=== PATIENT | female | born 1995 | race Caucasian/White ===

== ENCOUNTER → 2017-01-05 | Outpatient (CLI) | payer OTHER ==
--- NOTE | 2017-01-05 16:03 | RAD ---
Exam performed: OB ultrasound first trimester. History: First trimester abdominal pain. Date of service: 01/05/17. Comparison: None available Technique: Transabdominal and transvaginal. Findings: The uterus measures 9.4 x 5.8 x 5.2 cm. Endometrial stripe measures 27.3 mm. There is no intrauterine gestational sac. Right ovary measures 3.5 x 2.3 x 2.7 cm the left ovary measures 6.8 x 5.2 x 5.9 cm. There is a 5.4 x 4.8 x 5.5 cm cyst in the left ovary. Symmetric vascularity in both ovaries. Small amount of free fluid in the posterior cul-de-sac. Impression: 1. Large left ovarian cyst probably physiological. 2. No intra or extrauterine noted. Correlate with quantitative beta-hCG level to evaluate possible early . If test is positive, short-term interval follow-up OB ultrasound in approximately 2 weeks may be of additional benefit
== END | disposition home or self-care (01) ==
LOC: US 14:08
PROVIDERS: ATTEND Family Medicine
DX: O26.891 Other specified pregnancy related conditions, first trimester (principal); R10.84 Generalized abdominal pain; Z3A.01 Less than 8 weeks gestation of pregnancy
CPT/HCPCS: 76801

== ENCOUNTER 2017-04-06 11:05 | Emergency (ER) | payer MEDICAID, OTHER ==
[~2017-04-06] VITALS: Ht 152.4 cm; Wt 104.3 kg
--- NOTE | 2017-04-06 11:33 | PHYS DOC ---
Past Medical History Past Medical History: No Pertinent History Past Surgical History: Alcohol Use: None Drug Use: None Adult General Chief Complaint Chief Complaint: ABDOMINAL PAIN IN HPI HPI 21-year-old 16 week female by last menstrual period presenting to the emergency department today with abdominal pain and back pain. The pain is moderate intermittent nonradiating and not associated with any vaginal bleeding today. She denies fevers chills cough. Her OB doctor is Dr. Greene. Review of systems is negative for cough shortness of breath fevers chills. All other review of systems is negative unless otherwise noted in history of present illness. ED course: 21-year-old female presenting to the emergency department today with Abdominal pain in . Triage vital signs afebrile with normal heart rate. Labs obtained including ultrasound. Ultrasound reassuring. Labs obtained which showed the patient is Rh-. She has had mild vaginal bleeding but she reports it was a few weeks ago swelling go ahead and give her the moment RhoGAM here. Otherwise unremarkable. The patient was then discharged home in stable condition to follow up with her OB over the next 2-3 days. They were to return if their symptoms worsened or if they were concerned for any reason. Face-to- face discharge instructions and return precautions were given. Patient's questions were answered to their satisfaction. Patient is comfortable plan. Review of Systems Review of Systems SEE ABOVE. Current Medications Current Medications Current Medications Medications (Trade) Dose Ordered Sig/Eveline Start Time Stop Time Status Last Admin Dose Admin Acetaminophen (Tylenol) 650 mg 1X ONCE 04/06/17 11:45 04/06/17 11:46 DC 04/06/17 11:45 650 MG Allergies Allergies Allergies Coded Allergies Type Severity Reaction Last Updated Verified No Known Drug Allergies 08/30/13 No Physical Exam Physical Exam SEE ABOVE Constitutional: Well developed, well nourished, no acute distress, non-toxic appearance. [] HENT: Normocephalic, atraumatic, bilateral external ears normal, oropharynx moist, no oral exudates, nose normal. [] Eyes: PERRLA, EOMI, conjunctiva normal, no discharge. Neck: Normal range of motion, no tenderness, supple, no stridor. [] Cardiovascular:Heart rate regular rhythm, no murmur [] Lungs & Thorax: Bilateral breath sounds clear to auscultation Abdomen: Soft nontender gravid abdomen fundus 5cm below the umbilicus without rebound tenderness or guarding present. Negative McBurneys point. Negative Onofre sign. No ecchymosis present. Skin: Warm, dry, no erythema, no rash. [] Back: No tenderness, no CVA tenderness. [] Extremities: No tenderness, no cyanosis, no clubbing, ROM intact, no edema. Neurologic: Alert and oriented X 3, normal motor function, normal sensory function, no focal deficits noted. [] Psychologic: Affect normal, judgement normal, mood normal. Current Patient Data Vital Signs Vital Signs Date Time Temp Pulse Resp B/P (MAP) Pulse Ox O2 Delivery O2 Flow Rate FiO2 04/06/17 11:21 98.7 82 18 121/69 (86) 98 Room Air 98.7 Lab Values Laboratory Tests Test 04/06/17 10:25 04/06/17 11:13 04/06/17 12:00 POC Urine HCG, Qualitative Hcg positive (Negative) Urine Collection Type Void Urine Color Yellow Urine Clarity Clear Urine pH 7.0 Urine Specific [place] 1.025 Urine Protein Negative mg/dL (NEG-TRACE) Urine Glucose (UA) Negative mg/dL (NEG) Urine Ketones (Stick) Negative mg/dL (NEG) Urine Blood Negative (NEG) Urine Nitrite Negative (NEG) Urine Bilirubin Negative (NEG) Urine Urobilinogen Dipstick 1.0 mg/dL (0.2 mg/dL) Urine Leukocyte Esterase Negative (NEG) Urine RBC 0 /HPF (0-2) Urine WBC 0 /HPF (0-4) Urine Bacteria 0 /HPF (0-FEW) Urine Mucus Marked /LPF White Blood Count 10.1 x10^3/uL (4.0-11.0) Red Blood Count 3.79 x10^6/uL (3.50-5.40) Hemoglobin 11.7 g/dL (12.0-15.5) L Hematocrit 34.3 % (36.0-47.0) L Mean Corpuscular Volume 91 fL (79-100) Mean Corpuscular Hemoglobin 31 pg (25-35) Mean Corpuscular Hemoglobin Concent 34 g/dL (31-37) Red Cell Distribution Width 14.5 % (11.5-14.5) Platelet Count 117 x10^3/uL (140-400) L Neutrophils (%) (Auto) 78 % (31-73) H Lymphocytes (%) (Auto) 16 % (24-48) L Monocytes (%) (Auto) 4 % (0-9) Eosinophils (%) (Auto) 1 % (0-3) Basophils (%) (Auto) 0 % (0-3) Neutrophils # (Auto) 7.9 x10^3uL (1.8-7.7) H Lymphocytes # (Auto) 1.6 x10^3/uL (1.0-4.8) Monocytes # (Auto) 0.4 x10^3/uL (0.0-1.1) Eosinophils # (Auto) 0.1 x10^3/uL (0.0-0.7) Basophils # (Auto) 0.0 x10^3/uL (0.0-0.2) Platelet Estimate Pending Sodium Level 138 mmol/L (136-145) Potassium Level 3.5 mmol/L (3.5-5.1) Chloride Level 104 mmol/L (98-107) Carbon Dioxide Level 23 mmol/L (21-32) Anion Gap 11 (6-14) Blood Urea Nitrogen 6 mg/dL (7-20) L Creatinine 0.6 mg/dL (0.6-1.0) Estimated GFR (Cockcroft-Gault) 128.8 Glucose Level 123 mg/dL (70-99) H Calcium Level 8.9 mg/dL (8.5-10.1) Total Bilirubin 0.2 mg/dL (0.2-1.0) Direct Bilirubin 0.1 mg/dL (0.0-0.2) Aspartate Amino Transferase (AST) 15 U/L (15-37) Alanine Aminotransferase (ALT) 22 U/L (14-59) Alkaline Phosphatase 63 U/L (46-116) Total Protein 6.4 g/dL (6.4-8.2) Albumin 2.7 g/dL (3.4-5.0) L Lipase 95 U/L (73-393) Laboratory Tests 04/06/17 12:00 Laboratory Tests 04/06/17 12:00 EKG EKG [] Radiology/Procedures Radiology/Procedures [] Course & Med Decision Making Course & Med Decision Making Pertinent Labs and Imaging studies reviewed. (See chart for details) [] Dragon Disclaimer Dragon Disclaimer This electronic medical record was generated, in whole or in part, using a voice recognition dictation system. Departure Departure Impression: Primary Impression: Abdominal pain in Disposition: 01 HOME, SELF-CARE Condition: STABLE Referrals: VAISHNAVI TELLEZ MD (PCP) Patient Instructions: Abdominal Pain During Additional Instructions: Thank you for allowing us to participate in your care today. Followup with your OB in one day or 2 days.. Call your Primary Doctor tomorrow and inform them of your visit today. If you do not have a primary care provider you can ask for a list of our primary care providers. Return to the emergency department you have any new or concerning findings. This should be evaluated by the primary care physician and any necessary consulting services for continued management within a few days after discharge. Return to emergency room if you have any new or concerning symptoms including but not limited to fever, chills, nausea, vomiting, intractable pain, any new rashes, chest pain, shortness of air, uncontrolled bleeding, difficulty breathing, and/or vision loss. JASS CHERRY MD Apr 06, 2017 11:33
[2017-04-06 11:43] LABS: BILIRUBIN,URINE NEGATIVE (NEG); GLUCOSE,URINE NEGATIVE (NEG); NITRITE,URINE NEGATIVE (NEG); PROTEIN,URINE NEGATIVE (NEG-TRACE)
[2017-04-06] MEDS ORDERED: ACETAMINOPHEN 325 MG TABLET. PO ONE (11:45)
[2017-04-06 11:54] LABS: BACTERIA,URINE 0 /HPF (0-FEW); RBC,URINE 0 /HPF (0-2); WBC,URINE 0 /HPF (0-4)
[2017-04-06 12:07] LABS: BASO % 0 % (0-3); EOS % 1 % (0-3); HEMATOCRIT 34.3 % (36.0-47.0); HEMOGLOBIN 11.7 g/dL (12.0-15.5); LYMPH # 1.6 x10^3/uL (1.0-4.8); LYMPH % 16 % (24-48); MEAN CORPUSCULAR HEMOGLOBIN 31 pg (25-35); MEAN CORPUSCULAR HGB CONC 34 g/dL (31-37); MEAN CORPUSCULAR VOLUME 91 fL (79-100); MONO % 4 % (0-9); NEUT % 78 % (31-73); PLATELET COUNT 117 x10^3/uL (140-400); RED BLOOD COUNT 3.79 x10^6/uL (3.50-5.40); RED CELL DISTRIBUTION WIDTH 14.5 % (11.5-14.5); WHITE BLOOD COUNT 10.1 x10^3/uL (4.0-11.0)
[2017-04-06 12:26] LABS: CALCIUM 8.9 mg/dL (8.5-10.1); CREATININE 0.6 mg/dL (0.6-1.0); GFR 128.8; POTASSIUM 3.5 mmol/L (3.5-5.1)
[2017-04-06 12:31] LABS: ALBUMIN 2.7 g/dL (3.4-5.0); DIRECT BILIRUBIN 0.1 mg/dL (0.0-0.2); TOTAL BILIRUBIN 0.2 mg/dL (0.2-1.0); TOTAL PROTEIN 6.4 g/dL (6.4-8.2)
--- NOTE | 2017-04-06 13:22 | RAD ---
Indication pelvic pain. Obstetrical ultrasound examination was performed. Note is made of a prior examination 01/05/2017. The maternal cervical length is unremarkable at 4 cm. There is a single, viable, IUP. Biparietal diameter of 3.5 cm, head circumference of 13 cm, abdominal circumference of 11 cm and femoral length of 2.7 cm are compatible with a gestational age of approximately 17 weeks 1 day. By sonographic analysis the expected date of confinement is September 13, 2017. A full survey was not performed. heart rate of 145 was documented. The developing placenta is predominantly anterior. The amount of amniotic fluid appears normal. IMPRESSION: Single, viable, IUP of approximately 17 weeks gestation
[2017-04-06 14:26] LABS: PLT ESTIMATE ADEQUATE (ADEQUATE)
[2017-04-06 14:28] VITALS: BP 117/61
== END 2017-04-06 15:19 | disposition home or self-care (01) ==
LOC: ER 11:05
DX: O26.892 Other specified pregnancy related conditions, second trimester (principal); R10.9 Unspecified abdominal pain; M54.9 Dorsalgia, unspecified; O20.9 Hemorrhage in early pregnancy, unspecified; Z3A.16 16 weeks gestation of pregnancy
CPT/HCPCS: 36415; 76805; 80048; 80076; 81001; 81025; 83690; 85007; 85027; 86850; 86900; 86901; 99285; J2791

== ENCOUNTER → 2020-10-19 | Outpatient (CLI) | payer MEDICAID, OTHER ==
[2018-08-15 12:15] VITALS: BP 112/58
--- NOTE | 2020-10-19 16:19 | KCIC ---
EXAMINATION: MRI RIGHT LOWER EXTREMITY JOINT W INDICATIONS: Right knee pain medially after fall 10/04/2020. TECHNIQUE: Multiplanar multisequence MRI of the right knee was obtained without contrast. COMPARISON: Right knee radiograph 10/04/2020 FINDINGS: MENISCI: The medial and lateral menisci are intact. LIGAMENTS: High-grade tear of the medial patellofemoral ligament, greatest in the proximal and midpo rtion with probable complete disruption of fibers seen in the midportion (image 14 series 3). The anterior and posterior cruciate ligaments are intact. There is mild thickening of the proximal damon perficial medial collateral ligament with surrounding fluid. The medial meniscofemoral ligament is no t well visualized, and may be injured. The fibular collateral ligament, biceps femoris tendon, and po pliteus tendon are intact. There is edema deep to the iliotibial band. EXTENSOR MECHANISM: Medial patellofemoral ligament/medial retinaculum tear as above. Lateral retinacu lum is intact. The quadriceps and patellar tendons are intact. There is edema in the fat pad. BONES AND CARTILAGE: There is a mildly impacted osteochondral fracture of the medial patellar facet. No displaced fragment identified. Large contusion in the lateral femoral condyle. There is also cont usion in the posterior medial tibial plateau. Medial and lateral compartment cartilage is intact. OTHER: Small joint effusion. Extensive edema along the medial aspect of the knee. The remaining tend ons are intact. Cysts are intact. IMPRESSION: 1. Sequela of recent transient lateral patellar dislocation with high-grade, likely complete tear of the medial patellofemoral ligament, osteochondral fracture of the medial patellar facet, and large co ntusion in the lateral femoral condyle. 2. Grade 2 injury of the proximal medial collateral ligament and injury of the medial meniscofemoral ligament. 3. Contusion of the posterior medial tibial plateau. Electronically signed by: Laura Clark MD (10/19/2020 4:16 PM) [id number]
== END ==
LOC: KCIC MRI 10:05
PROVIDERS: ATTEND Physician Assistant
DX: S83.004A Unspecified dislocation of right patella, initial encounter (principal); M25.461 Effusion, right knee; X58.XXXA Exposure to other specified factors, initial encounter; Y93.89 Activity, other specified; Y92.89 Other specified places as the place of occurrence of the external cause; Y99.8 Other external cause status
CPT/HCPCS: 73721